=== PATIENT | female | born 1955 | race African-American/Black ===

== ENCOUNTER → 2016-04-22 | Outpatient (CLI) | payer MEDICARE, OTHER ==
[2014-04-13 20:01] VITALS: BP 158/69
--- NOTE | 2016-04-22 16:13 | RAD ---
Metastatic skeletal survey, 04/22/2016: History: Monoclonal gammopathy Multiple views of the bony skeleton were obtained with the following findings delineated: 1. A PA view of the chest reveals no fracture or destructive bony lesion. The lungs are clear. 2 AP and lateral views of the cervical spine demonstrate moderate scattered spurs and degenerative changes involving scattered facet joints. No fracture or destructive bony lesion is seen. 3. AP and lateral views of the thoracic spine reveal a mild scoliosis. No fracture or destructive bony lesion is seen. 4. AP and lateral views of the lumbar spine reveal mild scattered spurs. There are mild degenerative changes involving the facet joints in the lumbar spine. No fracture or destructive bony lesion is evident. 5. An AP view the pelvis shows no abnormality. 6. A lateral view of the skull demonstrates no calvarial abnormality. Dental disease is evident. 7. AP views of both femurs and lower legs reveal no fracture or destructive bony lesion. 8. AP views of both humeri and forearms reveal no fracture or destructive bony lesion. IMPRESSION: 1. Scattered degenerative changes in the spine. 2. No destructive lesion or pathologic fracture is evident.
== END | disposition home or self-care (01) ==
LOC: RAD 11:11
PROVIDERS: ATTEND Internal Medicine Hematology & Oncology
DX: D47.2 Monoclonal gammopathy (principal); M41.84 Other forms of scoliosis, thoracic region; M46.06 Spinal enthesopathy, lumbar region
CPT/HCPCS: 77075

== ENCOUNTER → 2016-05-27 | Outpatient (CLI) | payer MEDICARE, OTHER ==
[2014-04-13 20:01] VITALS: BP 158/69
--- NOTE | 2016-05-27 11:30 | RAD ---
EXAM: Maxillofacial bone CT without contrast. HISTORY: Sinusitis. TECHNIQUE: Computed tomographic images of the maxillofacial bones were obtained without contrast. One or more of the following individualized dose reduction techniques were utilized for this examination: 1. Automated exposure control. 2. Adjustment of the mA and/or kV according to patient size. 3. Use of iterative reconstruction technique. COMPARISON: None. FINDINGS: There is no sinus opacification or air-fluid level. 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 There is attenuation of the right greater than left ostiomeatal units. There is rightward nasal septal deviation. There is no sinus wall thickening or erosion. 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 There are findings consistent with left scleral banding surgery. The mastoid air cells are clear. There is cerebral volume loss. There are areas of hypodensity within the cerebral white matter, likely due to chronic small vessel disease. There is calcification within the basal ganglia. IMPRESSION: 1. No evidence of acute or chronic sinusitis. 2. Slight attenuation of the right ostiomeatal unit. 3. Left jose bullosa. 4. Mild nasal septal deviation.
== END | disposition home or self-care (01) ==
LOC: CT 13:42
PROVIDERS: ATTEND Nurse Practitioner Family
DX: B18.2 Chronic viral hepatitis C (principal); E03.9 Hypothyroidism, unspecified; E11.9 Type 2 diabetes mellitus without complications; E78.5 Hyperlipidemia, unspecified; H54.11 Blindness, right eye, low vision left eye; I10 Essential (primary) hypertension; Z00.00 Encounter for general adult medical examination without abnormal findings; R09.89 Other specified symptoms and signs involving the circulatory and respiratory systems
CPT/HCPCS: 70486